=== PATIENT | male | born 1960 | race Caucasian/White ===

== ENCOUNTER 2016-11-01 18:27 | Inpatient (IN) | payer MEDICAID ==
[~2016-11-01] VITALS: Ht 190.5 cm; Wt 87.5 kg
--- NOTE | 2016-11-01 18:27 | NUR ---
PT BIB [facility] FROM [facility], C/O GENERALIZED WEAKNESS SINCE YESTERDAY. O2 SAT 84 UPON ARRIVAL. PLACED ON MONITOR. VSS.
--- NOTE | 2016-11-01 19:00 | NUR ---
JUDY #18 IV ACCESS. BLOOD SAMPLE COLLECTED SENT TO LAB
[2016-11-01 19:21] LABS: BASOPHILS # (AUTO) 0.3 /CMM (0.0-0.2); BASOPHILS % (AUTO) 1.9 % (0.0-2.0); EOSINOPHILS % (AUTO) 0.1 % (0.0-6.0); HEMATOCRIT 33 % (39-51); HEMOGLOBIN 11.3 g/dL (13.5-17.5); LYMPHOCYTES # (AUTO) 0.8 /CMM (0.8-4.8); LYMPHOCYTES % (AUTO) 6.3 % (20.0-44.0); MEAN CORPUSCULAR HEMOGLOBIN 27 PG (26.0-33.0); MEAN CORPUSCULAR HGB CONC 34 g/dl (31.0-36.0); MEAN CORPUSCULAR VOLUME 81 fL (80-96); MONOCYTES # (AUTO) 0.6 /CMM (0.1-1.30); MONOCYTES % (AUTO) 4.3 % (2.0-12.0); NEUTROPHILS # (AUTO) 11.5 /CMM (1.8-8.9); NEUTROPHILS % (AUTO) 87.4 % (43.0-81.0); PLATELET COUNT (AUTO) 299 /CMM (150-450); RDW COEFFICIENT OF VARIATION 13.1 (11.5-15.0); RED BLOOD CELL COUNT(AUTO) 4.11 MIL/uL (4.5-6.0); WHITE BLOOD COUNT (AUTO) 13.2 K/uL (4.3-11.0)
[2016-11-01] MEDS ORDERED: IV SET PRIMARY PUMP SET 1 EA INFUS.SET MC ONE ×3 (19:23→23:42)
[2016-11-01] MEDS ORDERED: IV NS 0.9% 1,000 ML ONE ×2 (19:23→20:00)
[2016-11-01] MEDS ORDERED: IV NS 0.9% 1,000 ML BAG IV ONE (19:30)
[2016-11-01 19:31] LABS: CALCIUM, SERUM 8.8 mg/dL (8.5-10.1); CARBON DIOXIDE 28 mmol/L (21-32); CHLORIDE 92 mmol/L (98-107); CREATININE 1.1 mg/dL (0.6-1.3); GFR 69 mL/min (>60); GLUCOSE 128 mg/dL (74-106); POTASSIUM 3.8 mmol/L (3.5-5.1); SODIUM SERUM 129 mmol/L (136-145); UREA NITROGEN, BLOOD 17 mg/dL (7-18)
--- NOTE | 2016-11-01 19:34 | NUR ---
GAVE REPORT TO ОЛЬГА MANLEY FOR KYRIE
[2016-11-01 19:37] LABS: ALANINE AMINOTRANSFERASE 33 U/L (12-78); ALBUMIN 2.4 g/dL (3.4-5.0); ALKALINE PHOSPHATASE 48 U/L (46-116); ASPARTATE AMINOTRANSFERASE 30 U/L (15-37); BILIRUBIN,DIRECT 0.3 mg/dL (0.0-0.2); BILIRUBIN,TOTAL 0.7 mg/dL (0.2-1.0); TOTAL PROTEIN, SERUM 7.1 g/dL (6.4-8.2)
[2016-11-01 19:39] LABS: TROPONIN I < 0.017 ng/mL (0.00-0.056)
--- NOTE | 2016-11-01 19:57 | NUR ---
LAB AT BEDSIDE TO DRAW BLOOD
[2016-11-01] MEDS ORDERED: PIPERACILLIN /TAZOBACTAM 3.375 G in IV D5W 50 ML IV ONE (20:00)
[2016-11-01] MEDS ORDERED: PIPERACILLIN /TAZOBACTAM 3.375 G VIAL IV ONE (20:00)
[2016-11-01] MEDS ORDERED: LEVOFLOXACIN 750 MG /D5W 150ML 150 ML IV ONE ×2 (20:00)
[2016-11-01] MEDS ORDERED: ACETAMINOPHEN ES 500 MG TABLET PO ONE (20:00)
[2016-11-01] MEDS ORDERED: ACETAMINOPHEN ES 500 MG TABLET ONE (20:00)
--- NOTE | 2016-11-01 20:37 | NUR ---
DR.SHAO BAILEY
--- NOTE | 2016-11-01 21:35 | NUR ---
REPORT GIVEN TO SINDHU VELAZQUEZ FOR BED 315
--- NOTE | 2016-11-01 22:40 | NUR ---
TRANSFERRED PT TO RM 315-1 VIA [facility] IN ACLS PROTOCOL INSTABLE CONDITION.
[2016-11-01 22:45] VITALS: BP 99/55
[2016-11-01 23:00] VITALS: BP 99/55
--- NOTE | 2016-11-01 23:20 | NUR ---
PAGED DR DUFFY FOR ADMITTING ORDERS. WILL WAIT FOR HIS CALL BACK.
[2016-11-01] MEDS ORDERED: ONDANSETRON HCL/PF 4 MG/2 ML VIAL IV PRN (23:30)
[2016-11-01] MEDS ORDERED: ACETAMINOPHEN 325 MG TABLET PO PRN (23:30)
[2016-11-01] MEDS ORDERED: ZOLPIDEM TARTRATE 5 MG TABLET PO PRN (23:30)
[2016-11-01] MEDS ORDERED: IV PREMIX NS +20MEQ KCL 1 L IV ONE (23:34)
--- NOTE | 2016-11-01 23:35 | NUR ---
RECEIVED A CALL BACK FROM DR. CLIVE Contreras/ NEW ADMITTING ORDERS. AL NEW ORDERS NOTED,
[2016-11-01] MEDS: Potassium Chloride 20 MEQ in IV NS 0.9% 1,000 ML IV PRN (23:49)
[2016-11-02] VITALS (7 sets, daily range): BP systolic 107–112; BP diastolic 56–76
--- NOTE | 2016-11-02 | NUR ---
RN NOTE; ADMITTED A 56 Y/O , M , A, OX3. BREATHING EVENLY. NO SOB. NO DISTRESS. W/ COUGH EPISODES. AFEBRILE. DENIED ANY PAIN OR DISCOMFORT . VS:WNL. MEDICAL INFORMATION WAS OBTAINED FROM THE PT. PT STATED HE IS NOT TAKING ANY MEDIATIONS AT HOME. MADE AWARE. PT WAS PLACED ON HEART MONITOR. BODY CHECK DONE AND SKIN CARE PROVIDED. NEEDS ATTENDED. CLEANED AND DRIED . BED LOW LOCKED. CALL LIGHT WITHIN REACH ,WILL CONT TO MONITOR.
[2016-11-02 00:38] LABS: APPEARANCE,URINE CLEAR (CLEAR); BILIRUBIN,URINE NEGATIVE (NEGATIVE); BLOOD, URINE NEGATIVE Ery/uL (NEGATIVE); COLOR,URINE YELLOW (YELLOW); KETONES,URINE TRACE (NEGATIVE); LEUKOCYTE ESTERASE ,URINE NEGATIVE (NEGATIVE); NITRITE, URINE NEGATIVE (NEGATIVE); PH,URINE 5.5 (5.0-8.0); PROTEIN,URINE TRACE mg/dl (NEGATIVE); UGLUCOSE NEGATIVE (NEGATIVE); UROBILINOGEN,URINE 0.2 EU/dL (0.2)
[2016-11-02 01:11] LABS: ADD URINE CULTURE NO; BACTERIA,URINE None seen /HPF (None Seen); RBC,URINE 0-2 /HPF (0-2); SQUAMOUS EPITHELIAL CELL,UR Rare /HPF (None Seen)
--- NOTE | 2016-11-02 06:45 | NUR ---
RN NOTE; PT IN BED SLEEPING, AROUSES EASILY. REPORTED FEELING MUCH BETTER. BREATHING EVENLY, NO SOB. NO DISTRESS. STILL W/ ON AND OFF COUGH. AFEBRILE DURING THE NIGHT. HEART MONITOR IN PLACE READING SR W/ EPISODES OF ACCELERATED CONJUNCTION. PT DENIED ANY DISCOMFORT. ON ONGOING IVF HYDRATION. NEEDS ATTENDED. ASSISTED W/ ADLS. CALL LIGHT WITHIN REACH. WILL CONT TO MONITOR AND WILL ENDORSE TO AM SHIFT FOR KYRIE.
[2016-11-02 08:06] LABS: BASOPHILS % (AUTO) 0.1 % (0.0-2.0); HEMATOCRIT 30 % (39-51); LYMPHOCYTES # (AUTO) 1.4 /CMM (0.8-4.8); LYMPHOCYTES % (AUTO) 11.7 % (20.0-44.0); MEAN CORPUSCULAR HEMOGLOBIN 27 PG (26.0-33.0); MEAN CORPUSCULAR HGB CONC 33 g/dl (31.0-36.0); MEAN CORPUSCULAR VOLUME 82 fL (80-96); MONOCYTES % (AUTO) 8.1 % (2.0-12.0); NEUTROPHILS # (AUTO) 9.8 /CMM (1.8-8.9); NEUTROPHILS % (AUTO) 80.1 % (43.0-81.0); PLATELET COUNT (AUTO) 280 /CMM (150-450); RDW COEFFICIENT OF VARIATION 14.3 (11.5-15.0); RED BLOOD CELL COUNT(AUTO) 3.66 MIL/uL (4.5-6.0); WHITE BLOOD COUNT (AUTO) 12.3 K/uL (4.3-11.0)
[2016-11-02 08:16] LABS: CALCIUM, SERUM 8.2 mg/dL (8.5-10.1); CREATININE 0.8 mg/dL (0.6-1.3); POTASSIUM 4.1 mmol/L (3.5-5.1)
[2016-11-02] MEDS ORDERED: APIXABAN 5 MG TABLET PO SCH (09:30)
[2016-11-02] MEDS ORDERED: FLUT16SP16 NS (10:05)
[2016-11-02] MEDS ORDERED: METO25TA6 PO (10:05)
[2016-11-02] MEDS ORDERED: DEXT1DRO3 EACHEYE (10:05)
[2016-11-02] MEDS ORDERED: ASPI81TA2 PO (10:05)
[2016-11-02] MEDS ORDERED: FLUT10.62 IH (10:05)
[2016-11-02] MEDS ORDERED: APIXABAN 5 MG TABLET PO ONE (11:30)
--- NOTE | 2016-11-02 11:36 | NUR ---
WOUND CARE CONSULT: PATIENT SEEN AND SKIN ASSESSMENT DONE. PATIENT ALERT, ORIENTED, AMBULATORY, INDEPENDENT WITH BED MOBILITY, CONTINENT, GEORGE 18. SEE TODAY'S SKIN ASSESSMENT ALONG WITH RECOMMENDATIONS DISCUSSED WITH NURSING STAFF INCLUDING MOISTURE PROTECTION WITH Z GUARD ORDERED. IN AGREEMENT WITH PLAN OF CARE. Addendum: 11/02/16 at 1139 by JOHN NEW WNDNU Amended: Links added.
[2016-11-02] MEDS: Z GUARD REMEDY 2 OZ OINT TP SCH ×2 (12:00→17:36)
[2016-11-02] MEDS ORDERED: SECONDARY IV SET 1 EA INFUS.SET MC ONE (13:00)
[2016-11-02] MEDS: PIPERACILLIN /TAZOBACTAM 3.375 G in IV D5W 50 ML IV SCH ×2 (13:02→17:40)
[2016-11-02] MEDS: Z GUARD REMEDY 2 OZ OINT TP PRN ×2 (13:10→13:19)
[2016-11-02] MEDS: Potassium Chloride 20 MEQ in IV NS 0.9% 1,000 ML IV PRN (15:13)
--- NOTE | 2016-11-02 17:19 | NUR ---
RN Notes Verified home medication list with Dr De La Fuente with order to cont artificial tears, flonase,, flovent and metoprolol. Faxed list to pharmacy
[2016-11-02] MEDS: RIVAROXABAN 10 MG TABLET PO SCH (17:40)
[2016-11-02] MEDS ORDERED: POLYVINYL ALCOHOL 15 ML BOTTLE OP PRN (18:30)
[2016-11-02] MEDS ORDERED: LEVOFLOXACIN 500 MG /D5W 100ML 500 MG in PREMIX 1 EA IV SCH (20:00)
[2016-11-02] MEDS: FLUTICASONE 44MCG 1 EA INHALER IH SCH (21:02)
[2016-11-03] MEDS: PIPERACILLIN /TAZOBACTAM 3.375 G in IV D5W 50 ML IV SCH ×4 (00:55→17:32)
--- NOTE | 2016-11-03 06:47 | NUR ---
MS RN NOTES No significant changes noted. No SOB noted. Pt. tolerated dinner last night. Swallowing technique rendered. Pt. ambulates with standby assist. Pt on IVF. Due meds given as ordered. Clean and dry. Will endorse to the next shift.
[2016-11-03 07:07] VITALS: BP 120/84
--- NOTE | 2016-11-03 07:25 | NUR ---
RN NOTES: PT ON BED, AWAKE, REMAINS A/O X4, RESPIRATION EVEN AND UNLABORED ON ROOM AIR, DENIES ANY PAIN OR DISCOMFORT AT THIS TIME. IV ACCESS REMAINS PATENT AND INTACT NO REDNESS OR INFILTRATION NOTED. VS REMAINS STABLE, NEEDS ATTENDED. SAFETY PRECAUTIONS OBSERVED, CALL LIGHT IN REACH, WILL CONTINUE TO MONITOR
--- NOTE | 2016-11-03 07:30 | NUR ---
AM RN NOTE Received patient awake A/O X4 verbally responsive. No acute distress noted. On O2 2L/min via NC. Resp even and non-labored. IV site intact and patent. Condom cath intact as applied by previous shift nurse. Bed in low locked position. Will continue to monitor. Addendum: 11/03/16 at 0820 by RAMIRO HARMON RN incorrect entry
[2016-11-03 08:00] VITALS: BP_SYST 111; BP_SYST 131; BP_DIAS 63; BP_DIAS 81
[2016-11-03] MEDS: METOPROLOL TARTRATE 25 MG TABLET PO SCH ×2 (08:50→17:31)
[2016-11-03] MEDS: FLUTICASONE PROPIONATE 16 GM BOTTLE NS SCH (08:51)
[2016-11-03] MEDS: FLUTICASONE 44MCG 1 EA INHALER IH SCH ×2 (08:51→17:31)
[2016-11-03] MEDS: Z GUARD REMEDY 2 OZ OINT TP PRN ×2 (08:58→17:37)
[2016-11-03] MEDS: Z GUARD REMEDY 2 OZ OINT TP SCH ×2 (09:45→17:00)
[2016-11-03] MEDS: Potassium Chloride 20 MEQ in IV NS 0.9% 1,000 ML IV PRN (12:48)
[2016-11-03 15:58] VITALS: BP 124/80
--- NOTE | 2016-11-03 16:30 | NUR ---
RN NOTES MADE DR DUFFY AWARE OF RECOMMENDATION FROM DIETARY FOR VITAMIN C AND MULTIVITAMIN PER MD NO ORDERS AT THIS TIME, PT TO BE DISCHARGED TOMORROW
[2016-11-03] MEDS: RIVAROXABAN 10 MG TABLET PO SCH (17:28)
--- NOTE | 2016-11-03 18:57 | NUR ---
RN NOTES: PT ON BED, AWAKE, REMAINS A/O X4, RESPIRATION EVEN AND UNLABORED ON ROOM AIR, DENIES ANY PAIN OR DISCOMFORT AT THIS TIME. IV ACCESS REMAINS PATENT AND INTACT NO REDNESS OR INFILTRATION NOTED. VS REMAINS STABLE, NEEDS ATTENDED. SAFETY PRECAUTIONS OBSERVED, CALL LIGHT IN REACH, WILL CONTINUE TO MONITOR AND ENDORSE TO NEXT SHIFT FOR CONTINUITY OF CARE
--- NOTE | 2016-11-03 19:20 | NUR ---
MS/RN NOTES RECEIVED PT. SITTING UP IN BED. AWAKE, ALERT AND ORIENTED X3. BREATHING EVEN AND UNLABORED ON 3LPM O2 VIA NC. NO SOB, RESPIRATORY DISTRESS OR COMPLAINTS OF PAIN NOTED AT THIS TIME. PT. WITH LEFT HAND 18 GAUGE PERIPHERAL IV PRESENT, PATENT AND INTACT. BED IN LOWEST POSITION, CALL LIGHT WITHIN REACH, WILL CONTINUE TO MONITOR.
[2016-11-03 20:00] VITALS: BP 119/80
[2016-11-04] MEDS: PIPERACILLIN /TAZOBACTAM 3.375 G in IV D5W 50 ML IV SCH ×3 (00:23→12:24)
--- NOTE | 2016-11-04 06:45 | NUR ---
MS/RN NOTES PT. LYING IN BED RESTING. BREATHING EVEN AND UNLABORED ON 3LPM O2 VIA NC. NO SOB, RESPIRATORY DISTRESS OR COMPLAINTS OF PAIN NOTED AT THIS TIME. PT. WITH LEFT HAND 18 GAUGE PERIPHERAL IV PRESENT, PATENT AND INTACT. ALL PT. NEEDS MET. BED IN LOWEST POSITION, CALL LIGHT WITHIN REACH, WILL ENDORSE TO DAYSHIFT NURSE FOR CONTINUITY OF CARE.
[2016-11-04 07:05] LABS: BASOPHILS % (AUTO) 0.4 % (0.0-2.0); EOSINOPHILS # (AUTO) 0.1 /CMM (0.0-0.7); EOSINOPHILS % (AUTO) 1.5 % (0.0-6.0); HEMATOCRIT 31 % (39-51); HEMOGLOBIN 10.1 g/dL (13.5-17.5); LYMPHOCYTES # (AUTO) 1.6 /CMM (0.8-4.8); LYMPHOCYTES % (AUTO) 20.7 % (20.0-44.0); MEAN CORPUSCULAR HEMOGLOBIN 27 PG (26.0-33.0); MEAN CORPUSCULAR HGB CONC 32 g/dl (31.0-36.0); MEAN CORPUSCULAR VOLUME 83 fL (80-96); MONOCYTES % (AUTO) 13.3 % (2.0-12.0); NEUTROPHILS # (AUTO) 4.9 /CMM (1.8-8.9); NEUTROPHILS % (AUTO) 64.1 % (43.0-81.0); PLATELET COUNT (AUTO) 432 /CMM (150-450); WHITE BLOOD COUNT (AUTO) 7.7 K/uL (4.3-11.0)
[2016-11-04 07:16] LABS: CALCIUM, SERUM 8.4 mg/dL (8.5-10.1); CREATININE 0.8 mg/dL (0.6-1.3); POTASSIUM 3.7 mmol/L (3.5-5.1)
[2016-11-04 08:00] VITALS: BP 113/72
[2016-11-04] MEDS ORDERED: RIVA10TA PO (08:27)
[2016-11-04] MEDS ORDERED: LEVO500T15 PO (08:27)
[2016-11-04] MEDS: Z GUARD REMEDY 2 OZ OINT TP PRN (09:30)
[2016-11-04 09:31] VITALS: BP 113/72
[2016-11-04] MEDS: METOPROLOL TARTRATE 25 MG TABLET PO SCH (09:31)
[2016-11-04] MEDS: FLUTICASONE PROPIONATE 16 GM BOTTLE NS SCH (09:31)
[2016-11-04] MEDS: FLUTICASONE 44MCG 1 EA INHALER IH SCH (09:32)
[2016-11-04] MEDS: Z GUARD REMEDY 2 OZ OINT TP SCH (09:43)
[2016-11-04] MEDS: Potassium Chloride 20 MEQ in IV NS 0.9% 1,000 ML IV PRN (12:26)
--- NOTE | 2016-11-04 13:40 | NUR ---
RN NOTES PATIENT WITH DISCHARGE ORDER, WILL CONTINUE TO MONITOR AND ASSIST WITH DISCHARGE PROCESS.
--- NOTE | 2016-11-04 14:58 | NUR ---
RN NOTES: PT LYING DOWN ON BED, AWAKE, REMAINS A/O X3, O2 SAT 94% ON ROOM AIR, RESPIRATION EVEN AND UNLABORED, DENIES ANY CHEST PAIN AT THIS TIME. REMOVED IV ACCESS AND ID BAND WITH NO ASE NOTED AT THIS TIME. VS REMAINS STABLE, NEEDS ATTENDED. PICTURES OF SKIN ISSUES TAKEN AT TIME OF DISCHARGE. DISCHARGE INSTRUCTIONS REVIEWED WITH PATIENT AND FAMILY, PRESCRIPTIONS PROVIDED AND REVIEWED WITH PATIENT AND FAMILY. REPORT GIVEN TO JANIE RN AT [facility] AND [facility] FOR CONTINUITY OF CARE WITH NOTED VERBAL UNDERSTANDING. PATIENT DISCHARGED TO SNF ON STABLE CONDITION
== END 2016-11-04 15:00 | DRG 139 ==
LOC: ER 18:27 → TELE 20:51 → MED 11-02 16:51
PROVIDERS: ADMIT Internal Medicine; ATTEND Internal Medicine
DX: J15.9 Unspecified bacterial pneumonia (principal); D64.9 Anemia, unspecified; Z85.810 Personal history of malignant neoplasm of tongue; Z86.711 Personal history of pulmonary embolism; Z87.891 Personal history of nicotine dependence
CPT/HCPCS: 36415; 71010-TC; 80048-TC; 80076-TC; 81000-TC; 83605-TC; 84484-TC; 85025-TC; 87040-TC; 87081-TC; A4606; A6402; A6403; J1956; J2543; J3480; J3490; J7030; J7060; Z7610